=== PATIENT | male | born 1990 | race Caucasian/White ===

== ENCOUNTER 2021-04-27 18:37 | Emergency (ER) | payer OTHER ==
[2021-04-27 18:57] VITALS: BP 120/73; PULSE 83; TEMP 98.3; BMI 27.3
[2021-04-27] MEDS ORDERED: DIPHTH,PERTUSS(ACELL),TET 0.5 ML DISP.SYRIN IM ONE ×2 (19:17→19:30)
[2021-04-27] MEDS ORDERED: BACITRACIN 15 GM TUBE TOPICAL OINTMENT TP ONE (19:18)
[2021-04-27] MEDS ORDERED: IBUPROFEN 600 MG TABLET (FP) PO ONE ×2 (19:19→19:30)
[2021-04-27] MEDS ORDERED: BACITRACIN 15 GM TUBE TOPICAL OINTMENT ONE (19:30)
== END 2021-04-27 20:20 | disposition home or self-care (01) ==
LOC: JERFT 18:37
PROC: 3E0234Z Introduction of Serum, Toxoid and Vaccine into Muscle, Percutaneous Approach (ICD-10-PCS; principal; 2021-04-27)
DX: S00.81XA Abrasion of other part of head, initial encounter (principal); M25.511 Pain in right shoulder; W10.9XXA Fall (on) (from) unspecified stairs and steps, initial encounter
CPT/HCPCS: 73030-TC-RT-FY; 90715; 99284-25

== ENCOUNTER 2023-02-01 14:30 | Emergency (ER) | payer OTHER ==
[2023-02-01 14:36] VITALS: BP 115/73; PULSE 68; RESP 18; TEMP 98; BMI 28.1
[2023-02-01] MEDS ORDERED: KETOROLAC TROMETHAMINE 30 MG/1 ML VIAL IM ONE (15:10)
[2023-02-01] MEDS ORDERED: LIDOCAINE 4% PATCH TP ONE ×2 (15:10→15:13)
[2023-02-01] MEDS ORDERED: KETOROLAC TROMETHAMINE 30 MG/1 ML VIAL ONE (15:13)
== END 2023-02-01 15:34 | disposition home or self-care (01) ==
LOC: JERFT 14:30
PROC: 3E0233Z Introduction of Anti-inflammatory into Muscle, Percutaneous Approach (ICD-10-PCS; principal; 2023-02-01)
DX: M54.6 Pain in thoracic spine (principal); X50.0XXA Overexertion from strenuous movement or load, initial encounter; Y99.0 Civilian activity done for income or pay
CPT/HCPCS: 71046-TC-FY; 99284-25

== ENCOUNTER 2024-03-23 06:11 | Emergency (ER) | payer OTHER ==
[2024-03-23 06:25] VITALS: BP 104/71; PULSE 82; RESP 20; TEMP 98.1; BMI 28.1
== END 2024-03-23 07:34 | disposition home or self-care (01) ==
LOC: JER 06:11
DX: S40.912A Unspecified superficial injury of left shoulder, initial encounter (principal); M54.50 Low back pain, unspecified; X08.8XXA Exposure to other specified smoke, fire and flames, initial encounter
CPT/HCPCS: 99283-25